=== PATIENT | male | born 1980 | race Caucasian/White ===

== ENCOUNTER 2021-02-23 13:14 | Day surgery (SDC) | payer OTHER ==
[2021-02-23] MEDS ORDERED: Glucagon,Human Recombinant 1 MG Vial ONE (13:23)
--- NOTE | 2021-02-23 13:39 | EDM.PDOC ---
ED HPI GENERAL MEDICAL PROBLEM - General Chief Complaint: ENT Problem Stated Complaint: food stuck in throat Time Seen by Provider: 02/23/21 13:29 Source of Information: Reports: Patient History Limitations: Reports: No Limitations - History of Present Illness INITIAL COMMENTS - FREE TEXT/NARRATIVE: Patient is a 40-year-old male who presents today for possible food bolus. They states he was eating some crab when he felt stuck in his throat. He still able to swallow his saliva but has sensation that is stuck in his throat. Patient is able to breathe clearly has no other complaints at the moment. - Related Data Allergies Allergy/AdvReac Type Severity Reaction Status Date / Time No Known Allergies Allergy Verified 02/23/21 13:34 Home Meds: Home Meds . [No Known Home Meds] 02/23/21 [History] ED ROS ENT - Review of Systems Review Of Systems: See Below Constitutional: Reports: No Symptoms HEENT: Reports: Throat Pain Respiratory: Reports: No Symptoms Endocrine: Reports: No Symptoms GI/Abdominal: Reports: No Symptoms : Reports: No Symptoms Musculoskeletal: Reports: No Symptoms Skin: Reports: No Symptoms Neurological: Reports: No Symptoms Psychiatric: Reports: No Symptoms Hematologic/Lymphatic: Reports: No Symptoms Immunologic: Reports: No Symptoms ED EXAM, ENT - Physical Exam Exam: See Below Exam Limited By: No Limitations General Appearance: Alert, WD/WN Mouth/Throat: Normal Inspection, Normal Gums, Normal Lips, Normal Oropharynx Neck: Normal Inspection, Supple, Non-Tender Extremities: Normal Inspection Neurological: Alert, Oriented Course - Vital Signs Last Recorded V/S: Last Vital Signs Temp 97.5 F 02/23/21 13:32 Pulse 51 L 02/23/21 15:21 Resp 17 02/23/21 13:32 BP 121/74 02/23/21 15:21 Pulse Ox 99 02/23/21 15:21 - Orders/Labs/Meds Orders: Active Orders 24 hr Category Date Time Status CORONAVIRUS COVID-19 GEGE [MOLEC] Stat Lab 02/23/21 15:59 Ordered Meds: Medications Discontinued Medications Generic Name Dose Route Start Last Admin Trade Name Freq PRN Reason Stop Dose Admin Glucagon Confirm 02/23/21 13:23 02/23/21 15:59 Glucagon,Human Recombinant 1 Mg Vial Administered 02/23/21 13:24 Not Given Dose 1 mg .ROUTE .STK-MED ONE - Re-Assessments/Exams Free Text/Narrative Re-Assessment/Exam: 02/23/21 16:03 Will be taken to the OR for possible endoscopy to remove full impaction. 02/23/21 16:04 Patient exchanges. But still seems to be managing his airway Departure - Departure Time of Disposition: 16:03 Disposition: Refer to Observation Condition: Good Clinical Impression: Food impaction of esophagus - Discharge Information *PRESCRIPTION DRUG MONITORING PROGRAM REVIEWED*: Not Applicable *COPY OF PRESCRIPTION DRUG MONITORING REPORT IN PATIENT PHI: Not Applicable Referrals: PCP,None [Primary Care Provider] - Forms: ED Department Discharge Critical Care Note - Critical Care Note Total Time (mins): 45 Comments: Critical Care Procedure Note Authorized and Performed by: Dr. Lepe Total critical care time: Approximately Due to a high probability of clinically significant, life threatening deterioration, the patient required my highest level of preparedness to intervene emergently and I personally spent this critical care time directly and personally managing the patient. This critical care time included obtaining a history; examining the patient; pulse oximetry; ordering and review of studies; arranging urgent treatment with development of a management plan; evaluation of patient's response to treatment; frequent reassessment; and, discussions with ot her providers. This critical care time was performed to assess and manage the high probability of imminent, life-threatening deterioration that could result in multi-organ failure. It was exclusive of separately billable procedures and treating other patients and teaching time. Sepsis Event Note (ED) - Evaluation Sepsis Screening Result: No Definite Risk - Focused Exam Vital Signs: Vital Signs Temp Pulse Resp BP Pulse Ox 02/23/21 15:21 51 L 121/74 99 02/23/21 13:32 97.5 F 65 17 110/82 97 - Assessment/Plan Plan: Patient is a 40-year-old male presents today for possible food bolus stuck in his throat. Patient tried to drink some coke without success we will obtain a x-ray of the soft tissue and consult surgery.
--- NOTE | 2021-02-23 15:35 | CR ---
INDICATION: Globus sensation. TECHNIQUE: Soft tissue neck 2 view. COMPARISON: None. FINDINGS: The airway is patent and normal. Epiglottis is normal. The retropharyngeal soft tissues are normal. No obvious masses. The visualized cervical spine demonstrates no significant findings. IMPRESSION: Unremarkable soft tissue neck. No sign of foreign body. Dictated by Merlin Young MD @ 02/23/2021 3:33:27 PM (Electronically Signed)
[2021-02-23] MEDS ORDERED: fentaNYL 100 MCG/2 ML SDV IVPUSH PRN (16:07)
[2021-02-23] MEDS ORDERED: Metoclopramide 10 MG/2 ML SDV IVPUSH PRN (16:07)
[2021-02-23] MEDS ORDERED: Naloxone 0.4 MG/ML SDV IVPUSH PRN (16:07)
[2021-02-23] MEDS ORDERED: Ondansetron 4 MG/2 ML SDV IVPUSH PRN (16:07)
[2021-02-23] MEDS ORDERED: HYDROmorphone 1 MG/ML Syringe IVPUSH PRN (16:07)
--- NOTE | 2021-02-23 16:18 | PCM.HP.2 ---
H&P History of Present Illness - General Date of Service: 02/23/21 Admit Problem/Dx: Admission Diagnosis/Problem Admission Diagnosis/Problem Food impaction of esophagus Source of Information: Patient History Limitations: Reports: No Limitations - History of Present Illness Initial Comments - Free Text/Narative: 40 year old male who was eating today when a piece of food became stuck in his esophagus. He states that he has been having issues with food sticking but normally he is able to get the food to pass with sips of water or vomiting. He denies any GERD symptoms. He tried drinking coke and taking sips of water but immediately vomited. He came to the ER. Vitals were stable. A soft tissue neck XR was normal. - Related Data Allergies/Adverse Reactions: Allergies Allergy/AdvReac Type Severity Reaction Status Date / Time No Known Allergies Allergy Verified 02/23/21 13:34 Home Medications: Home Meds . [No Known Home Meds] 02/23/21 [History] Past Medical History HEENT History: Reports: None Cardiovascular History: Reports: None Respiratory History: Reports: None Gastrointestinal History: Reports: Other (See Below) Other Gastrointestinal History: ingunial hernia Genitourinary History: Reports: None Musculoskeletal History: Reports: None Neurological History: Reports: None Psychiatric History: Reports: None Endocrine/Metabolic History: Reports: None Hematologic History: Reports: None Immunologic History: Reports: None Oncologic (Cancer) History: Reports: None Dermatologic History: Reports: None - Infectious Disease History Infectious Disease History: Reports: None - Past Surgical History Head Surgeries/Procedures: Reports: None HEENT Surgical History: Reports: Tonsillectomy Cardiovascular Surgical History: Reports: None Respiratory Surgical History: Reports: None GI Surgical History: Reports: Hernia, Inguinal Male Surgical History: Reports: None Endocrine Surgical History: Reports: None Neurological Surgical History: Reports: None Musculoskeletal Surgical History: Reports: Amputation Oncologic Surgical History: Reports: None Dermatological Surgical History: Reports: None Social & Family History - Family History Family Medical History: No Pertinent Family History - Tobacco Use Tobacco Use Status *Q: Never Tobacco User Second Hand Smoke Exposure: No - Caffeine Use Caffeine Use: Reports: None - Recreational Drug Use Recreational Drug Use: No H&P Review of Systems - Review of Systems: Review Of Systems: Comprehensive ROS is negative, except as noted in HPI. Exam - Exam Exam: See Below - Vital Signs Vital Signs: Last Vital Signs Temp 36.4 C 02/23/21 13:32 Pulse 51 L 02/23/21 15:21 Resp 17 02/23/21 13:32 BP 121/74 02/23/21 15:21 Pulse Ox 99 02/23/21 15:21 Weight: 104.326 kg - Exam Quality Assessment: Supplemental Oxygen General: Alert, Oriented HEENT: Conjunctiva Clear, Mucosa Moist & [place], Posterior Pharynx Clear Neck: Supple, Trachea Midline Lungs: Clear to Auscultation, Normal Respiratory Effort Cardiovascular: Regular Rate, Regular Rhythm GI/Abdominal Exam: Soft, Non-Tender, No Distention, No Mass Sepsis Event Note - Evaluation Sepsis Screening Result: No Definite Risk - Focused Exam Vital Signs: Vital Signs Temp Pulse Resp BP Pulse Ox 02/23/21 15:21 51 L 121/74 99 02/23/21 13:32 36.4 C 65 17 110/82 97 - Problem List (1) Food impaction of esophagus SNOMED Code(s): 705858777 ICD Code: T18.128A - FOOD IN ESOPHAGUS CAUSING OTHER INJURY, INITIAL ENCOUNTER Status: Acute Current Visit: Yes Problem List Initiated/Reviewed/Updated: Yes Orders Last 24hrs: Active Orders 24 hr Category Date Time Status Patient Status [ADT] Routine ADT 02/23/21 16:04 Active Blood Glucose Check, Bedside [RC] PRN Care 02/23/21 16:07 Active Notify Provider Vital Signs [RC] ASDIRECTED Care 02/23/21 16:07 Active Overnight Pulse Oximetry [RC] Click to Edit Care 02/23/21 16:07 Active Oxygen Therapy [RC] PRN Care 02/23/21 16:07 Active RT Aerosol Therapy [RC] ASDIRECTED Care 02/23/21 16:07 Active RT BiPAP/CPAP [RC] ASDIRECTED Care 02/23/21 16:07 Active Vital Signs [RC] Q5M Care 02/23/21 16:07 Active CORONAVIRUS COVID-19 GEGE [MOLEC] Stat Lab 02/23/21 15:56 Received HYDROmorphone [Dilaudid] Med 02/23/21 16:07 Ordered 1 mg IVPUSH Q10M PRN Metoclopramide [Reglan] Med 02/23/21 16:07 Ordered 10 mg IVPUSH ONETIME PRN Naloxone [Narcan] Med 02/23/21 16:07 Ordered 0.1 mg IVPUSH ASDIRECTED PRN Ondansetron [Zofran] Med 02/23/21 16:07 Ordered 4 mg IVPUSH ONETIME PRN fentaNYL [Sublimaze] Med 02/23/21 16:07 Ordered 50 mcg IVPUSH Q5M PRN Pulse Oximetry Continuous Monitoring [OM.PC] Routine Oth 02/23/21 16:07 Ordered Medication Orders Fentanyl (Fentanyl 100 Mcg/2 Ml Sdv) 50 mcg IVPUSH Q5M PRN PRN Reason: Pain (mild 1-3) Hydromorphone HCl (Hydromorphone 1 Mg/Ml Syringe) 1 mg IVPUSH Q10M PRN PRN Reason: Pain (moderate 4-6) Metoclopramide HCl (Metoclopramide 10 Mg/2 Ml Sdv) 10 mg IVPUSH ONETIME PRN PRN Reason: Nausea/Vomiting Naloxone HCl (Naloxone 0.4 Mg/Ml Sdv) 0.1 mg IVPUSH ASDIRECTED PRN PRN Reason: Respiratory Depression Ondansetron HCl (Ondansetron 4 Mg/2 Ml Sdv) 4 mg IVPUSH ONETIME PRN PRN Reason: Nausea/Vomiting Assessment/Plan Comment:: I explained to the patient the need for a diagnostic EGD and food disimpaction. We discussed the procedure, expected perioperative course and risks including bleeding, infection or perforation. He verbalized understanding and wishes to proceed.
--- NOTE | 2021-02-23 16:19 | PCM.PREANE ---
Preanesthetic Assessment - Anesthesia/Transfusion/Family Hx Anesthesia History: Prior Anesthesia Without Reaction Family History of Anesthesia Reaction: No - Review of Systems General: No Symptoms Pulmonary: No Symptoms Cardiovascular: No Symptoms Gastrointestinal: Abdominal Pain, Difficulty Swallowing Neurological: No Symptoms Other: Reports: None - Physical Assessment NPO Status Date: 02/23/21 NPO Status Time: 14:00 Vital Signs: Last Vital Signs Temp 97.5 F 02/23/21 13:32 Pulse 51 L 02/23/21 15:21 Resp 17 02/23/21 13:32 BP 121/74 02/23/21 15:21 Pulse Ox 99 02/23/21 15:21 Height: 6 ft Weight: 230 lb ASA Class: 2E Mental Status: Alert & Oriented x3 Airway Class: Mallampati = 2 Dentition: Reports: Normal Dentition Thyro-Mental Finger Breadths: 3 Mouth Opening Finger Breadths: 3 ROM/Head Extension: Full Lungs: Clear to Auscultation, Normal Respiratory Effort Cardiovascular: Regular Rate, Regular Rhythm - Allergies Allergies/Adverse Reactions: Allergies Allergy/AdvReac Type Severity Reaction Status Date / Time No Known Allergies Allergy Verified 02/23/21 13:34 - Acknowledgements Anesthesia Type Planned: General Anesthesia Pt an Appropriate Candidate for the Planned Anesthesia: Yes Alternatives and Risks of Anesthesia Discussed w Pt/Guardian: Yes Pt/Guardian Understands and Agrees with Anesthesia Plan: Yes PreAnesthesia Questionnaire HEENT History: Reports: None Cardiovascular History: Reports: None Respiratory History: Reports: None Gastrointestinal History: Reports: Other (See Below) Other Gastrointestinal History: ingunial hernia Genitourinary History: Reports: None Musculoskeletal History: Reports: None Neurological History: Reports: None Psychiatric History: Reports: None Endocrine/Metabolic History: Reports: None Hematologic History: Reports: None Immunologic History: Reports: None Oncologic (Cancer) History: Reports: None Dermatologic History: Reports: None - Infectious Disease History Infectious Disease History: Reports: None - Past Surgical History Head Surgeries/Procedures: Reports: None HEENT Surgical History: Reports: None Cardiovascular Surgical History: Reports: None Respiratory Surgical History: Reports: None GI Surgical History: Reports: None Male Surgical History: Reports: None Endocrine Surgical History: Reports: None Neurological Surgical History: Reports: None Musculoskeletal Surgical History: Reports: None Oncologic Surgical History: Reports: None Dermatological Surgical History: Reports: None - SUBSTANCE USE Tobacco Use Status *Q: Never Tobacco User Second Hand Smoke Exposure: No Recreational Drug Use History: No - HOME MEDS Home Medications: Home Meds . [No Known Home Meds] 02/23/21 [History] - CURRENT (IN HOUSE) MEDS Current Meds: Current Medications Fentanyl (Fentanyl 100 Mcg/2 Ml Sdv) 50 mcg IVPUSH Q5M PRN PRN Reason: Pain (mild 1-3) Hydromorphone HCl (Hydromorphone 1 Mg/Ml Syringe) 1 mg IVPUSH Q10M PRN PRN Reason: Pain (moderate 4-6) Metoclopramide HCl (Metoclopramide 10 Mg/2 Ml Sdv) 10 mg IVPUSH ONETIME PRN PRN Reason: Nausea/Vomiting Naloxone HCl (Naloxone 0.4 Mg/Ml Sdv) 0.1 mg IVPUSH ASDIRECTED PRN PRN Reason: Respiratory Depression Ondansetron HCl (Ondansetron 4 Mg/2 Ml Sdv) 4 mg IVPUSH ONETIME PRN PRN Reason: Nausea/Vomiting Discontinued Medications Glucagon (Glucagon,Human Recombinant 1 Mg Vial) Confirm Administered Dose 1 mg .ROUTE .STK-MED ONE Stop: 02/23/21 13:24 Last Admin: 02/23/21 15:59 Dose: Not Given Documented by:
[2021-02-23] MEDS ORDERED: Sodium Chloride 0.9% 2.5 ML Syringe FLUSH PRN (16:30)
[2021-02-23] MEDS ORDERED: Lactated Ringers 1,000 ML IV SCH (16:30)
[2021-02-23] MEDS ORDERED: Sodium Chloride 0.9% 10 ML Syringe FLUSH PRN (16:30)
[2021-02-23] MEDS ORDERED: Sodium Chloride 0.9% 10 ML SDV IV PRN (16:30)
[2021-02-23] MEDS ORDERED: Metoclopramide 10 MG/2 ML SDV IVPUSH ONE (17:00)
[2021-02-23] MEDS ORDERED: Midazolam 1 MG/ML 2 ML SDV ONE (17:17)
[2021-02-23] MEDS ORDERED: fentaNYL 100 MCG/2 ML SDV ONE (17:17)
[2021-02-23] MEDS ORDERED: Propofol 200 MG/20 ML SDV ONE (17:17)
[2021-02-23] MEDS ORDERED: Lidocaine 2% 5 ML SDV ONE (17:17)
[2021-02-23] MEDS ORDERED: Metoclopramide 10 MG/2 ML SDV ONE (17:17)
[2021-02-23] MEDS ORDERED: Ondansetron 4 MG/2 ML SDV ONE (17:46)
--- NOTE | 2021-02-23 18:15 | PCM.OPNOTE ---
- General Post-Op/Procedure Note Date of Surgery/Procedure: 02/23/21 Operative Procedure(s): EGD with food disimpaction and biopsy Findings: Piece of crab meat from 22 to 25 cm in the esophagus. Pre Op Diagnosis: Esophageal obstruction do to food impaction Post-Op Diagnosis: same Anesthesia Technique: General ET Tube Primary Surgeon: Deedee Akbar Condition: Stable
--- NOTE | 2021-02-23 18:20 | PCM.POSTAN ---
POST ANESTHESIA ASSESSMENT - MENTAL STATUS Mental Status: Somnolent - VITAL SIGNS Vital Signs: Last Vital Signs Temp 97.5 F 02/23/21 13:32 Pulse 67 02/23/21 16:07 Resp 17 02/23/21 13:32 BP 115/74 02/23/21 16:07 Pulse Ox 98 02/23/21 16:07 - RESPIRATORY Respiratory Status: Respiratory Rate WNL, Airway Patent, O2 Saturation Stable - CARDIOVASCULAR CV Status: Pulse Rate WNL, Blood Pressure Stable - GASTROINTESTINAL GI Status: No Symptoms - POST OP HYDRATION Hydration Status: Adequate & Stable
--- NOTE | 2021-02-23 18:20 | PCM48HPAN ---
Post Anesthesia Note - EVALUATION WITHIN 48HRS OF ANESTHETIC Vital Signs in Normal Range: Yes Patient Participated in Evaluation: Yes Respiratory Function Stable: Yes Airway Patent: Yes Cardiovascular Function Stable: Yes Hydration Status Stable: Yes Pain Control Satisfactory: Yes Nausea and Vomiting Control Satisfactory: Yes Mental Status Recovered: Yes Vital Signs: Last Vital Signs Temp 97.5 F 02/23/21 13:32 Pulse 67 02/23/21 16:07 Resp 17 02/23/21 13:32 BP 115/74 02/23/21 16:07 Pulse Ox 98 02/23/21 16:07
--- NOTE | 2021-02-23 20:46 | OR ---
SURGEON: DEEDEE AKBAR MD DATE OF PROCEDURE: 02/23/2021 PREOPERATIVE DIAGNOSIS: Food impaction of esophagus. POSTOPERATIVE DIAGNOSIS: Food impaction of esophagus. PROCEDURE PERFORMED: Esophagogastroduodenoscopy with food disimpaction and biopsy. PRIMARY SURGEON: Deedee Akbar MD ANESTHESIA: General endotracheal anesthesia. INSTRUMENT USED: Olympus endoscope. EXTENT OF EXAM: To the second portion of duodenum. FINDINGS: Food impacted from 22 cm from the teeth to 25 cm from the teeth. COMPLICATIONS: None. INDICATIONS: The patient is a 40-year-old male who ate crab this afternoon. After the first couple of bites, he felt food become impacted in his esophagus. Despite conservative measures, the food has not dislodged. He came to the emergency room. I explained the need for a diagnostic EGD with food disimpaction and possible biopsy of the stomach. We discussed the procedure, expected perioperative course, and the risks. He verbalized understanding and wishes to proceed. PROCEDURE IN DETAIL: The patient was brought in to the OR and placed on the OR table in supine position. A time-out was completed verifying the patient's name, age, date of , allergies, and procedure to be performed. Rapid sequence intubation was performed. The patient was then placed in a semi beach chair position. A bite block was placed in his mouth. A well-lubricated endoscope was placed in the patient's mouth and advanced under direct visualization. At 22 cm from the teeth, the patient was noted to have an impacted piece of food. A photograph of this was taken. I attempted to push the piece of food down the esophagus, but was unable to do so. The piece of food was taken out of the esophagus in piecemeal fashion using both a tri-prong grasper and biopsy forceps. Eventually, enough of the food was removed that I was able to push the remainder of the bolus down into the stomach. The food was impacted from 22 to 25 cm from the teeth. The esophagus was cleared of any residual food residue. I inspected the area of impaction. The area was slightly inflamed. A photograph of this was taken. The scope was then advanced under direct visualization to the level of the second portion of duodenum. This appeared normal and a photograph was taken. The scope was then straightened out and fully withdrawn while examining the color, texture, anatomy, and integrity of the mucosa of the upper GI tract. The duodenum and stomach appeared normal. A biopsy was taken in the antrum of the stomach and sent to Pathology for histologic review. The scope was brought into the distal esophagus. There appeared to be some evidence of distal esophagitis just above the Z-line consistent with reflux. A photograph of this was taken. The scope was removed and the procedure terminated. The patient was extubated and taken to PACU in stable condition. GORDON / STU /[id number]
== END 2021-02-23 20:40 | disposition home or self-care (01) ==
LOC: MW.ED 13:14 → MW.SDS 16:12 → MW.MS 19:06 → MW.SDS 20:40
PROVIDERS: ATTEND Surgery
DX: T18.128A Food in esophagus causing other injury, initial encounter (principal); Z01.812 Encounter for preprocedural laboratory examination; Z20.822 Contact with and (suspected) exposure to COVID-19
CPT/HCPCS: 00731; 70360; 70360-26; 88305; 88342; 96374; 99285-25; J0330; J2250; J2405; J2704; J2765; J3010; U0002